=== PATIENT | male | born 2000 | race Caucasian/White ===

== ENCOUNTER 2025-03-15 17:24 | Emergency (ER) | payer OTHER, SELFPAY ==
[2025-03-15 17:29] VITALS: BP 144/81; PULSE 73; RESP 17; TEMP 36.8; O2SAT 99; BMI 23.6
--- NOTE | 2025-03-15 18:38 | ED_ITS ---
HPI - Wound/Laceration General Chief Complaint: Wound/Laceration Stated Complaint: L Finger Laceration Time Seen by Provider: 03/15/25 18:04 Source: patient Mode of arrival: Ambulatory History of Present Illness HPI narrative: 24-year-old male with no significant past medical history is presents for laceration to the left middle finger, he states that he was washing a wine glass that shattered and sliced his finger, unsure of tetanus vaccination status, not on any blood thinners denies any other injuries at this time. Related Data Previous Rx's ?Medication ?Instructions ?Recorded doxycycline hyclate 100 mg tablet 100 mg PO Q12H 5 day s #10 tabs 03/15/25 Review of Systems Review of Systems Narrative: General: Denies fever, chills, weight loss HEENT: Denies headache, eye drainage, eye irritation, head trauma, sore throat, voice change Cardiovascular: Denies any chest pain, palpitations, tachycardia Respiratory: Denies any shortness of breath, cough, wheeze, stridor GI/: Denies any abdominal pain, nausea, vomiting, diarrhea, bright red blood per rectum, melanotic stools, urinary frequency, urinary retention, dysuria, hematuria MSK: Laceration to the palmar aspect of the left middle finger, Denies any joint pain, muscle pains, swelling Skin: Denies any rashes, lesions, discoloration Neuro: Denies any headache, lightheadedness, dizziness, fainting, weakness Psych: Denies SI/HI Patient History Smoking Status: Never smoker Exam Narrative Exam Narrative: General: Cooperative, well-developed, not in acute distress HEENT: Normocephalic, atraumatic, PERRLA, normal sclera, eyelids normal Neck: Active full range of motion, atraumatic Chest: Normal to inspection, negative crepitus, no overlying erythema ecchymosis Respiratory: Normal respiratory effort, not in acute respiratory distress, clear to auscultation bilaterally negative cough, wheeze, tachypnea, rhonchi, rales Cardiology: Regular rate rhythm negative gallop, murmur, rubs GI/: No tenderness to palpation, soft, non rigid, normal to inspection, exam deferred MSK: Full active range of motion in all 4 extremities, atraumatic, no tenderness to palpation of any bony prominences, patient with 1.5 cm laceration to the palmar aspect of the left middle finger, neurovascularly intact Skin: No rashes or lesions noted Neuro: Alert awake oriented x3, moves all 4 extremities spontaneously, cranial nerves intact, able to answer all questions appropriately follows commands appropriately Psych: Cooperative, negative suicidal or homicidal ideations Initial Vital Signs Initial Vital Signs: Vital Signs Temperature 98.2 F 03/15/25 17:29 Pulse Rate 73 03/15/25 17:29 Respiratory Rate 17 03/15/25 17:29 Blood Pressure 144/81 H 03/15/25 17:29 Pulse Oximetry 99 03/15/25 17:29 Oxygen Delivery Method Room Air 03/15/25 17:29 Procedures Laceration Repair Laceration 1: Time of procedure: 19:19 Site: hand (Left middle finger) Side (If applicable): left Size (cm): 1.5 Description: linear Depth: simple, single layer Local Anesthetic: lidocaine 1% Amount of anesthesia used (mL): 3 Pre-repair: wound explored, irrigated extensively and deep structures intact Skin layer closed with: other (Ethilon) Skin layer suture size: 3-0 Number of sutures: 10 Technique: simple, interrupted Course Vital Signs Vital signs: Vital Signs - 8 hr 03/15/25 17:29 Temperature 98.2 F Pulse Rate 73 Respiratory Rate 17 Blood Pressure 144/81 H Pulse Oximetry 99 Oxygen Delivery Method Room Air MDM - Wound/Laceration Differential Diagnosis Differential diagnosis: Likely laceration, abrasion and avulsion of skin MDM Narrative Medical decision making narrative: 24-year-old male with no significant past medical history presenting for laceration to the palmar aspect of his left hand, states he was washing dishes and a wine glass cut his hand when it broke. Unsure of tetanus vaccination status, on exam 1.5 cm laceration noted the palmar aspect of the left hand neurovascularly intact, patient had laceration repair with 10 for 4-0 sutures, patient states that he does use his hands a lot at work is right-handed, will prescribe patient with prophylactic antibiotics. He verbalized understanding of this and agrees to being discharged home with outpatient follow up patient did have tetanus vaccine updated here Discharge Plan Departure Patient Disposition: Home Clinical Impression: Finger laceration Instructions: How to Care for a Laceration After Repair, DI for Laceration Repair Activity Restrictions/Additional Instructions: You have 10 sutures that need to be removed in a proximally 1 week Please read the discharge instructions sheet carefully and bring all papers to all doctor follow-up visits, as it may contain information that your doctor may want to see. Disease processes change and evolve, if your symptoms worsen or if you develop any new symptoms that are concerning to you please return for evaluation. Your evaluation today does not show any evidence of any life- threatening/serious illnesses requiring admission to the hospital or surgery. Please follow-up with your doctor for re-evaluation in approximately 1 day. Seek immediate medical attention for any worrisome symptoms. *If you do not have a primary care provider please contact the [facility] Resource line at [phone]. They will ask some questions about your medical history and help get you set up with a doctor in the community. Prescriptions: New doxycycline hyclate 100 mg tablet 100 mg PO Q12H 5 Days Qty: 10 0RF Stand Alone Forms: Patient Portal/API
[2025-03-15] MEDS: LIDOCAINE 2% INJ SDV 5ML 2 ML INJ (18:55)
[2025-03-15] MEDS: TET,DIPH,PERTUSS(ACELL),VAC/PF 0.5 ML SYRINGE IM (18:58)
[2025-03-15 20:01] VITALS: BP 136/69; PULSE 74; RESP 16; O2SAT 96
== END 2025-03-15 20:01 | disposition home or self-care (01) ==
PROVIDERS: Emergency Provider Student in an Organized Health Care Education/Training Program
DX: S61.213A Laceration without foreign body of left middle finger without damage to nail, initial encounter (principal); W25.XXXA Contact with sharp glass, initial encounter; Z23 Encounter for immunization
CPT/HCPCS: 12001; 90471; 99283; 90715